=== PATIENT | female | born 1965 | race Two or more races ===

== ENCOUNTER 2018-03-10 10:30 | Inpatient (IN) | payer OTHER ==
[~2018-03-10] VITALS: Ht 167.6 cm; Wt 77.1 kg
[2018-03-10] MEDS ORDERED: ZESTRIL5 MG PO (11:45)
[2018-03-10] MEDS ORDERED: DICLOFENAC POTA50 MG PO (11:45)
[2018-03-10] MEDS ORDERED: MONTELUKAST SOD10 MG PO (11:46)
[2018-03-10] MEDS ORDERED: AMBIEN10 MG PO (11:46)
[2018-03-10] MEDS ORDERED: CLONAZEPAM1 MG PO (11:46)
[2018-03-10] MEDS ORDERED: DULOXETINE HCL30 MG PO (11:47)
[2018-03-11] MEDS ORDERED: DOCUSATE SODIU100 MG PO (14:50)
[2018-03-11] MEDS ORDERED: GABAPENTIN800 MG PO (14:50)
[2018-03-11] MEDS ORDERED: PERCOCET 5-3251 EACH PO (14:50)
[2018-03-11] MEDS ORDERED: CIPROFLOXACIN750 MG PO (14:50)
[2018-03-11] MEDS ORDERED: CLONAZEPAM1 MG PO (14:50)
[2018-03-13] MEDS ORDERED: CLONAZEPAM1 MG PO (15:42)
[2018-03-13] MEDS ORDERED: PERCOCET 5-3251 EACH PO (15:42)
== END 2018-03-13 17:56 | DRG 458 ==
LOC: SURG 03-11 05:30 → PED 03-11 05:40 → O/R 03-11 05:40 → SURG 03-11 10:29 → PED 03-11 16:32
PROVIDERS: Orthopaedic Surgery Orthopaedic Surgery of the Spine
PROC: 0SG10AJ Fusion of 2 or more Lumbar Vertebral Joints with Interbody Fusion Device, Posterior Approach, Anterior Column, Open Approach (ICD-10-PCS; 2018-03-11)
PROC: 0ST20ZZ Resection of Lumbar Vertebral Disc, Open Approach (ICD-10-PCS; 2018-03-11)
PROC: 07DS3ZZ Extraction of Vertebral Bone Marrow, Percutaneous Approach (ICD-10-PCS; 2018-03-11)
PROC: 0SG10A0 Fusion of 2 or more Lumbar Vertebral Joints with Interbody Fusion Device, Anterior Approach, Anterior Column, Open Approach (ICD-10-PCS; principal; 2018-03-11 05:30)
DX: M47.26 Other spondylosis with radiculopathy, lumbar region (principal); M41.56 Other secondary scoliosis, lumbar region; M48.061 Spinal stenosis, lumbar region without neurogenic claudication; M51.16 Intervertebral disc disorders with radiculopathy, lumbar region; I10 Essential (primary) hypertension; G47.33 Obstructive sleep apnea (adult) (pediatric); J45.909 Unspecified asthma, uncomplicated

== ENCOUNTER 2018-05-30 09:14 | Outpatient (CLI) | payer OTHER ==
[~2018-05-30 09:14] MED LIST: AMBIEN10 MG PO; CIPROFLOXACIN750 MG PO; CLONAZEPAM1 MG PO; DICLOFENAC POTA50 MG PO; DOCUSATE SODIU100 MG PO; DULOXETINE HCL30 MG PO; GABAPENTIN800 MG PO; MONTELUKAST SOD10 MG PO; PERCOCET 5-3251 EACH PO; ZESTRIL5 MG PO
== END 2018-05-30 09:18 | disposition home or self-care (01) ==
LOC: RAD 09:14
DX: M51.36 Other intervertebral disc degeneration, lumbar region (principal); Z98.1 Arthrodesis status

== ENCOUNTER 2018-12-05 10:30 | Outpatient (CLI) | payer OTHER | END 2018-12-05 11:16 | disposition home or self-care (01) | LOC: RAD 10:30 | DX: M51.36 Other intervertebral disc degeneration, lumbar region (principal); Z98.1 Arthrodesis status ==

== ENCOUNTER 2025-07-26 10:00 | Inpatient (IN) | payer OTHER ==
[~2025-07-26] VITALS: Ht 182.9 cm; Wt 101.6 kg
[2025-07-26] MEDS ORDERED: TRAMADOL HCL50 MG PO (10:38)
[2025-07-26] MEDS ORDERED: [UNRECOGNIZED DRUG - OTHER] (10:38)
[2025-07-26] MEDS ORDERED: CELEBREX200MG PO (10:39)
[2025-07-26 12:45] LABS: COVID-19 AG NEGATIVE (NEGATIVE)
[2025-08-02] MEDS ORDERED: 0.9 % SODIUM CHLORIDE 1,000 ML IV SCH (07:45)
[2025-08-02] MEDS ORDERED: PROMETHAZINE HCL 50 MG/ML AMPUL IM PRN (07:45)
[2025-08-02] MEDS ORDERED: ENALAPRILAT DIHYDRATE 1.25 MG/ML VIAL IV PRN (07:45)
[2025-08-02] MEDS ORDERED: MORPHINE SULFATE 4 MG/ML CARTRIDGE IV PRN (08:00)
[2025-08-02] MEDS ORDERED: DOCUSATE SODIUM 100MG CAP PO SCH (09:00)
[2025-08-02] MEDS ORDERED: METHYLPREDNISOLONE SOD SUCC 125 MG VIAL IV SCH (09:00)
[2025-08-02] MEDS ORDERED: VANCOMYCIN HCL 1,000 MG VIAL IV SCH (09:00)
[2025-08-02] MEDS ORDERED: TAMSULOSIN HCL 0.4 MG CAP PO SCH (09:00)
[2025-08-02] MEDS ORDERED: BACTRIM DS TAB1 EACH PO (09:25)
[2025-08-02] MEDS ORDERED: PERCOCET 5-3251 EACH PO (09:25)
[2025-08-02] MEDS ORDERED: MEDROLPACK PO (09:25)
[2025-08-02] MEDS ORDERED: NEURONTIN800 MG PO (09:26)
[2025-08-02] MEDS ORDERED: ZOFRAN8 MG PO (09:26)
[2025-08-02] MEDS ORDERED: GABAPENTIN100 M2 PO (09:26)
[2025-08-02] MEDS ORDERED: METHYLPREDNISOLONE ACETATE 40 MG/ML VIAL IU ONE (11:30)
[2025-08-02] MEDS ORDERED: ONDANSETRON HCL 2 MG/ML VIAL IV ONE (16:05)
[2025-08-02 19:21] VITALS: BP 168/94; O2SAT 94
[2025-08-02] MEDS ORDERED: ACETAMINOPHEN 500 MG GEL..CAP PO SCH (20:00)
[2025-08-02] MEDS ORDERED: ZOLPIDEM TARTRATE 10 MG TABLET PO SCH (21:00)
[2025-08-02] MEDS ORDERED: GABAPENTIN 800 MG TABLET PO SCH (21:00)
[2025-08-03] MEDS ORDERED: SODIUM CHLORIDE 0.45 % 1,000 ML IV SCH
[2025-08-03] MEDS ORDERED: OxyCODONE HCL 5 MG TABLET (ROXICODONE) PO PRN (06:01)
[2025-08-03 06:15] LABS: BASO % 0.1 % (0.1-1.2); EOS # 0.00 (0.04-0.54); EOS % 0.0 % (0.7-7.0); LYMPH # 0.74 (1.18-3.74); LYMPH % 7.6 % (19.3-53.1); MEAN PLATELET VOLUME 10.70 fl (9.4-12.4); MONO # 0.11 (0.24-0.82); MONO % 1.1 % (4.7-12.5); NEUT # 8.89 (1.56-6.13); NEUT % 90.9 % (34.0-71.1); RED CELL DISTRIBUTION WIDTH 13.2 % (11.6-14.4)
[2025-08-03 06:42] LABS: BUN CREA RATIO 18.0 (7.0-25.0); CREATININE SERUM 0.6 mg/dL (0.55-1.02); GFR 102.68; GLUCOSE FASTING 151.0 mg/dL (65-100); OSMOLALITY SERUM 285.0 MOSM/KG (275-295)
[2025-08-03 14:14] VITALS: O2SAT 96
[2025-08-03 16:00] VITALS: BP 162/83; O2SAT 98
[2025-08-04 00:30] VITALS: BP 134/76; O2SAT 99
[2025-08-04 05:21] VITALS: O2SAT 90
[2025-08-04 08:43] VITALS: BP 158/83; O2SAT 96
[2025-08-04 14:04] LABS: COVID-19 AG NEGATIVE (NEGATIVE)
== END 2025-08-04 13:20 | DRG 428 ==
LOC: O/R 08-02 06:00 → SURG 08-02 06:00 → SURH 08-02 09:15 → SURG 08-02 14:17
PROVIDERS: ADMIT Orthopaedic Surgery Orthopaedic Surgery of the Spine; ATTEND Orthopaedic Surgery Orthopaedic Surgery of the Spine
PROC: 0SG1071 Fusion of 2 or more Lumbar Vertebral Joints with Autologous Tissue Substitute, Posterior Approach, Posterior Column, Open Approach (ICD-10-PCS; 2025-08-02)
PROC: 0ST20ZZ Resection of Lumbar Vertebral Disc, Open Approach (ICD-10-PCS; 2025-08-02)
PROC: 07DR0ZZ Extraction of Iliac Bone Marrow, Open Approach (ICD-10-PCS; 2025-08-02)
PROC: 4A1104G Monitoring of Peripheral Nervous Electrical Activity, Intraoperative, Open Approach (ICD-10-PCS; 2025-08-02)
PROC: XRGC0R7 Fusion of 2 or more Lumbar Vertebral Joints using Custom-Made Anatomically Designed Interbody Fusion Device, Open Approach, New Technology Group 7 (ICD-10-PCS; principal; 2025-08-02 09:15)
PROC: 4A12X4Z Monitoring of Cardiac Electrical Activity, External Approach (ICD-10-PCS; 2025-08-03)
DX: M48.062 Spinal stenosis, lumbar region with neurogenic claudication (principal); M51.362 Other intervertebral disc degeneration, lumbar region with discogenic back pain and lower extremity pain; I10 Essential (primary) hypertension